=== PATIENT | female | born 1945 | race Caucasian/White ===

== ENCOUNTER 2022-09-08 12:47 | Outpatient (CLI) | payer MEDICARE, SELFPAY ==
--- NOTE | 2022-09-08 13:12 | MM_ITS ---
WS: [email or web address] BILATERAL 3D TOMOSYNTHESIS DIGITAL SCREENING MAMMOGRAPHY WITH CAD CLINICAL INFORMATION: Z12.39 - Encounter for other screening for malignant neop... HISTORY: Screening mammogram. LEFT breast scar tissue. Bilateral breast reduction. COMPARISON: August 26, 2021 TECHNIQUE: Bilateral CC and MLO views. FINDINGS: Prior postoperative changes bilateral breast reduction. Scattered fibroglandular densities bilaterally. No suspicious focal mass, asymmetry, calcifications, or architectural distortion. No evidence of malignancy. A few incidental punctate calcifications. No significant changes compared to previous. MM/[place] [id number] IMPRESSION: BI-RADS: 2-Benign FOLLOW UP: 1 Year Follow-up Recommend return to annual screening mammography.
== END 2022-09-08 12:48 | disposition home or self-care (01) ==
LOC: RAD 12:52
PROVIDERS: PCP Nurse Practitioner Family; Visit Provider Nurse Practitioner Family
DX: Z12.31 Encounter for screening mammogram for malignant neoplasm of breast (principal)
CPT/HCPCS: 77063; 77067

== ENCOUNTER → 2023-05-04 10:30 | Outpatient (BNVA) | payer MEDICARE, SELFPAY | PROVIDERS: PCP Nurse Practitioner Family; Visit Provider Nurse Practitioner Family | DX: Z00.00 Encounter for general adult medical examination without abnormal findings (principal); Z78.0 Asymptomatic menopausal state; I10 Essential (primary) hypertension; E55.9 Vitamin D deficiency, unspecified; E78.5 Hyperlipidemia, unspecified; Z12.31 Encounter for screening mammogram for malignant neoplasm of breast; M54.2 Cervicalgia; G89.29 Other chronic pain; G25.81 Restless legs syndrome; J01.00 Acute maxillary sinusitis, unspecified; Z53.20 Procedure and treatment not carried out because of patient's decision for unspecified reasons | CPT/HCPCS: 80053; 80061; 82306; 82607; 84443; 85025 ==

== ENCOUNTER 2023-05-10 14:58 | Outpatient (CLI) | payer MEDICARE, SELFPAY ==
--- NOTE | 2023-05-10 15:30 | XR_ITS ---
WS: [email or web address] SCREENING DEXA SCAN [facility] CLINICAL INFORMATION: Z78.0 - Asymptomatic menopausal state COMPARISON: None. FINDINGS: The L1-L4 bone mineral density measures 1.63. This corresponds to a T score score of 3.5 and Z score of 5.6. Left femoral neck bone mineral density measures 0.998 g/cm2. This corresponds to a T score of -0.1 an d Z score of 1.9. Right femoral neck bone mineral density measures 0.933 g/cm2. This corresponds to a T score -0.6of an d Z score of 1.4. Mean femoral neck bone mineral density measures 0.965 g/cm2. This corresponds to a T score of -0.3 an d Z score of 1.7. IMPRESSION: Normal bone mineralization lumbar spine. Normal bone mineralization femoral necks. Patient's FRAX calculated 10 year probability for major osteoporotic fracture is 11.1% and osteoporot ic hip fracture is 2.0%.
== END 2023-05-10 14:59 | disposition home or self-care (01) ==
LOC: RAD 14:59
PROVIDERS: PCP Nurse Practitioner Family; Visit Provider Nurse Practitioner Family
DX: Z13.820 Encounter for screening for osteoporosis (principal); Z78.0 Asymptomatic menopausal state
CPT/HCPCS: 77080

== ENCOUNTER 2023-10-25 11:30 | Outpatient (CLI) | payer MEDICARE, SELFPAY ==
--- NOTE | 2023-10-25 10:38 | MM_ITS ---
WS: [email or web address] BILATERAL SCREENING DIGITAL TOMOSYNTHESIS MAMMOGRAM WITH CAD HISTORY: SCREENING COMPARISON: None available. Bilateral CC and MLO views with tomosynthesis and synthetic mammography submitted. Computer aided det ection analyzed. Breast composition: There are scattered areas of fibroglandular density. No suspicious masses, microc alcifications or architectural distortion. MM/[place] [id number] IMPRESSION: BI-RADS: 1-Negative FOLLOW UP: 1 Year Follow-up
== END 2023-10-25 11:31 | disposition home or self-care (01) ==
PROVIDERS: PCP Nurse Practitioner Family; Visit Provider Nurse Practitioner Family
DX: Z12.31 Encounter for screening mammogram for malignant neoplasm of breast (principal); R92.323 Mammographic fibroglandular density, bilateral breasts
CPT/HCPCS: 77063; 77067

== ENCOUNTER → 2024-01-04 11:43 | Outpatient (BNVA) | payer MEDICARE, SELFPAY | PROVIDERS: PCP Nurse Practitioner Family; Visit Provider Nurse Practitioner Family | DX: R05.9 Cough, unspecified (principal) | CPT/HCPCS: 87400; 87426 ==

== ENCOUNTER → 2024-02-12 14:10 | Outpatient (BNVA) | payer MEDICARE, SELFPAY | PROVIDERS: PCP Nurse Practitioner Family; Visit Provider Nurse Practitioner Family | DX: M84.48XA Pathological fracture, other site, initial encounter for fracture (principal); M85.80 Other specified disorders of bone density and structure, unspecified site; M54.2 Cervicalgia; Z98.1 Arthrodesis status; Z96.698 Presence of other orthopedic joint implants; G89.29 Other chronic pain; Z98.890 Other specified postprocedural states | CPT/HCPCS: 72040 ==

== ENCOUNTER 2024-02-16 07:29 | Outpatient (CLI) | payer MEDICARE, SELFPAY ==
--- NOTE | 2024-02-16 08:00 | CTR_ITS ---
PROCEDURE INFORMATION: Exam: CT Cervical Spine Without Contrast Exam date and time: 02/16/2024 7:37 AM Age: 78 years old Clinical indication: Prior surgery; Surgery date: 6+ months; Surgery type: Cervical fusion 12 yrs ago; Patient HX: Cervicalgia x several years recently becoming worse and radiating into left arm with pain and numbness; Additional info: M54.2 - cervicalgia TECHNIQUE: Imaging protocol: Computed tomography of the cervical spine without contrast. Radiation optimization: All CT scans at this facility use at least one of these dose optimization techniques: automated exposure control; mA and/or kV adjustment per patient size (includes targeted exams where dose is matched to clinical indication); or iterative reconstruction. COMPARISON: CR XR cervical spine 3V* [id number] 02/12/2024 2:16 PM RADIATION DOSE METRICS: Total DLP (mGy-cm): 168.57 FINDINGS: Bones/joints: The patient is status post anterior cervical fusion from C3 through C7. There is slight grade 1 anterolisthesis of C7 on T1, T1 on T2, and T2 on T3. Otherwise alignment is maintained. There is no evidence of fracture. 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 There is moderate multilevel degenerative disc disease. C2-C3: No significant disc bulge or herniation. No severe spinal canal stenosis. No significant neural foraminal narrowing. C3-C4: There is mild to moderate spinal canal stenosis secondary to diffuse disc osteophyte ridging. There is severe right and moderate left neural foraminal stenosis secondary to foraminal disc osteophyte ridging and facet hypertrophy. C4-C5: There is mild spinal canal stenosis secondary to diffuse osteophyte ridging. The left neural foramen appears patent. There is severe right neural foraminal stenosis secondary to foraminal disc osteophyte ridging and facet hypertrophy. C5-C6: The spinal canal appears to be patent. The left neural foramen appears patent. There is moderate right neural foraminal stenosis secondary to foraminal disc osteophyte ridging and facet hypertrophy. C6-C7: There is mild spinal canal stenosis secondary to osteophyte ridging which effaces the anterior thecal sac. There is mild to moderate bilateral neural foraminal stenosis secondary to foraminal disc osteophyte ridging and facet hypertrophy. C7-T1: The spinal canal appears patent. There is [id number] bilateral neural foraminal stenosis secondary to foraminal disc osteophyte ridging and facet hypertrophy. Lungs: Lung apices are normal. Soft tissues: Unremarkable. CT/CT cervical spin wo con* [id number] IMPRESSION: Degenerative changes as described. Please see above for specific findings at each level.
== END 2024-02-16 07:30 | disposition home or self-care (01) ==
LOC: RAD 07:30
PROVIDERS: PCP Nurse Practitioner Family; Visit Provider Nurse Practitioner Family
DX: M48.02 Spinal stenosis, cervical region (principal); M25.78 Osteophyte, vertebrae; M19.09 Primary osteoarthritis, other specified site; M47.892 Other spondylosis, cervical region; M43.22 Fusion of spine, cervical region
CPT/HCPCS: 72125

== ENCOUNTER → 2024-02-27 12:44 | Outpatient (BNVA) | payer MEDICARE, SELFPAY | PROVIDERS: PCP Nurse Practitioner Family; Visit Provider Orthopaedic Surgery | DX: M54.2 Cervicalgia (principal); G89.29 Other chronic pain | CPT/HCPCS: 72050; 99204 ==

== ENCOUNTER → 2024-04-25 13:12 | Outpatient (BNVA) | payer MEDICARE, SELFPAY | PROVIDERS: PCP Nurse Practitioner Family; Visit Provider Student in an Organized Health Care Education/Training Program | DX: G56.02 Carpal tunnel syndrome, left upper limb (principal) | CPT/HCPCS: 20600; 73110; 99204; J3301; J3490 ==

== ENCOUNTER → 2024-05-13 10:18 | Outpatient (BNVA) | payer MEDICARE, SELFPAY | PROVIDERS: PCP Nurse Practitioner Family; Referring Provider Orthopaedic Surgery; Visit Provider Anesthesiology Pain Medicine | DX: G89.29 Other chronic pain (principal); M47.812 Spondylosis without myelopathy or radiculopathy, cervical region | CPT/HCPCS: 99204 ==

== ENCOUNTER → 2024-07-19 10:08 | Outpatient (BNVA) | payer MEDICARE, SELFPAY | PROVIDERS: PCP Nurse Practitioner Family; Visit Provider Nurse Practitioner Family | DX: D18.01 Hemangioma of skin and subcutaneous tissue (principal); L57.8 Other skin changes due to chronic exposure to nonionizing radiation; L81.4 Other melanin hyperpigmentation; L82.1 Other seborrheic keratosis; Z08 Encounter for follow-up examination after completed treatment for malignant neoplasm; Z85.828 Personal history of other malignant neoplasm of skin; L57.0 Actinic keratosis | CPT/HCPCS: 17000; 99213 ==

== ENCOUNTER → 2024-09-13 12:38 | Outpatient (BNVA) | payer MEDICARE, SELFPAY | PROVIDERS: PCP Nurse Practitioner Family; Visit Provider Nurse Practitioner Family | DX: M54.50 Low back pain, unspecified (principal); G89.29 Other chronic pain; M41.9 Scoliosis, unspecified; I10 Essential (primary) hypertension; E78.5 Hyperlipidemia, unspecified; G25.81 Restless legs syndrome | CPT/HCPCS: 80053; 80061; 82306; 82607; 83036; 84443; 85025 ==

== ENCOUNTER 2024-10-18 10:56 | Outpatient (CLI) | payer MEDICARE, SELFPAY ==
--- NOTE | 2024-10-18 11:09 | XRR_ITS ---
PROCEDURE INFORMATION: Exam: XR Thoracic Spine Exam date and time: 10/18/2024 11:21 AM Age: 79 years old Clinical indication: Pain in thoracic spine; Additional info: M54.6 - pain in thoracic spine TECHNIQUE: Imaging protocol: Radiologic exam of the thoracic spine. Views: 3 views. COMPARISON: CR XR cervical spine 4-5V [id number] 02/27/2024 12:45 PM FINDINGS: Bones/joints: 60 degrees of dextroscoliosis centered at L 2. The lumbar dextroscoliosis results in mild levoscoliosis of the lower thoracic spine. No malalignment. No acute fracture identified. Assessment of the lower thoracic vertebra is somewhat limited secondary to scoliosis. Cervical spine fixation hardware is partially imaged. Soft tissues: Unremarkable. XR/XR thoracic spine 3V* [id number] IMPRESSION: 1. Severe lumbar dextroscoliosis. 2. No acute fracture or malalignment in the thoracic spine.
--- NOTE | 2024-10-18 11:09 | XRR_ITS ---
PROCEDURE INFORMATION: Exam: XR Lumbosacral Spine Exam date and time: 10/18/2024 11:21 AM Age: 79 years old Clinical indication: Low back pain; Additional info: M54.50 - low back pain, unspecified TECHNIQUE: Imaging protocol: Radiologic exam of the lumbosacral spine. Views: 2 or 3 views. COMPARISON: CR XR thoracic spine 3V* [id number] 10/18/2024 11:21 AM FINDINGS: Bones/joints: Severe dextroconvex curvature of the lumbar spine with the L2 vertebral body. Severe multilevel degenerative changes of the lumbar spine with degenerative disc changes and facet changes. There is some variable mild height loss of the mid and lower lumbar levels but difficult to evaluate acuity given technique. Consider cross-sectional imaging. Soft tissues: Unremarkable. XR/XR lumbar spine 2-3V* [id number] IMPRESSION: As above..
== END 2024-10-18 10:57 | disposition home or self-care (01) ==
PROVIDERS: PCP Nurse Practitioner Family; Visit Provider Nurse Practitioner Family
DX: M54.50 Low back pain, unspecified (principal); M54.6 Pain in thoracic spine; M41.86 Other forms of scoliosis, lumbar region; M41.54 Other secondary scoliosis, thoracic region
CPT/HCPCS: 72072; 72100

== ENCOUNTER 2024-11-01 07:43 | Outpatient (CLI) | payer MEDICARE, SELFPAY ==
--- NOTE | 2024-11-01 | MM_ITS ---
WS: [email or web address] BILATERAL SCREENING DIGITAL TOMOSYNTHESIS MAMMOGRAM WITH CAD HISTORY: ANNUAL SCREENING COMPARISON: 10/25/2023, 09/08/2022, 08/26/2021 Bilateral CC and MLO views with tomosynthesis and synthetic mammography submitted. Computer aided detection analyzed. Breast composition: There are scattered areas of fibroglandular density. No suspicious masses, microcalcifications or architectural distortion. Benign calcifications anterior depth of each breast. No suspicious grouping of calcification or distortion. MM/MM scr tomosynthesis [id number] IMPRESSION: BI-RADS: 2 - Benign. FOLLOW UP: 1 Year Follow-up
== END 2024-11-01 07:44 | disposition home or self-care (01) ==
LOC: RAD 07:44
PROVIDERS: PCP Nurse Practitioner Family; Visit Provider Nurse Practitioner Family
DX: Z12.31 Encounter for screening mammogram for malignant neoplasm of breast (principal); R92.323 Mammographic fibroglandular density, bilateral breasts; R92.1 Mammographic calcification found on diagnostic imaging of breast
CPT/HCPCS: 77063; 77067

== ENCOUNTER 2024-11-22 08:05 | Outpatient (CLI) | payer MEDICARE, SELFPAY ==
--- NOTE | 2024-11-22 08:45 | MR_ITS ---
WS: [email or web address] MRI LUMBAR SPINE NONCONTRAST HISTORY: M54.50 - Low back pain, unspecified COMPARISON: None available. TECHNIQUE: Sagittal and axial multisequence imaging is submitted. Severe RIGHT rotary scoliosis of the lumbar spine. Scoliosis begins in the lower thoracic spine. There is a small amount of marrow edema in the L4 and L5 vertebral bodies. Endplate marrow edema at L1 and L2. Advanced degenerative disc disease and facet arthropathy. Conus terminates normally at L1-2 disc level. L1-L2: Diffuse annular disc bulging, osteophytic ridging and facet arthritis. Severe bilateral foraminal stenosis. L2-L3: Deformed thecal sac by the scoliosis. Moderate facet arthritis. Very minimal central and foraminal stenosis. L3-L4: Diffuse osteophytic ridging. Marked deformity of the thecal sac. Nerve roots are being displaced and compressed. At least moderate central, bilateral foraminal stenosis and facet arthritis. L4-L5: Marked deformity of the thecal sac with marked facet arthritis. Asymmetric disc bulging to the RIGHT. Severe central, bilateral subarticular recess and foraminal stenosis. L5-S1: Diffuse annular disc bulging with osteophytic ridging. Central disc protrusion. Ligamentum flavum and facet arthritis. Mild central and subarticular recess and severe bilateral foraminal stenosis. No mass identified on the posterior lumbar spine. The palpable abnormality may actually be the transverse processes of the lumbar vertebral bodies. The RIGHT L2 and L3 transverse processes are very close to the skin surface due to the scoliosis. LEFT renal cysts. MR/MR lumbar spine wo con* [id number] IMPRESSION: 1. Severe rotary scoliosis lumbar spine with curvature to the RIGHT. 2. Advanced degenerative facet joint arthropathy and stenosis at several level s. 3. Severe bilateral foraminal stenosis at L1-2. 4. Moderate central, bilateral foraminal stenosis and facet arthropathy at L3- 4. 5. Severe central, bilateral subarticular recess and foraminal stenosis at L4- 5. 6. Severe bilateral foraminal stenosis at L5-S1. 7. No paraspinal soft tissue mass. The palpable areas along the RIGHT lateral lumbar spine may actually be the RIGHT transverse processes of L1 and L2 which are very close to the skin surface.
--- NOTE | 2024-11-22 09:30 | MR_ITS ---
WS: [email or web address] MRI THORACIC SPINE noncontrast HISTORY: M54.6 - Pain in thoracic spine COMPARISON: Radiograph 10/18/2024 TECHNIQUE: Multiplanar sequences are performed in sagittal and axial planes. Prior anterior cervical fusion from C3-C7. Marked RIGHT curvature thoracolumbar spine. Scoliosis is most significant near the thoracolumbar junction. No thoracic spine compression fractures. Signal within the cord is normal. No cord compression. Mild straightening of the thoracic kyphosis. T1-2: Normal. T2-3: Normal. T3-4: Normal. T4-5: Normal. T5-6: Small central disc protrusion. Mild facet arthritis. T6-7: Mild facet arthritis and mild foraminal narrowing. T7-8: Mild facet arthritis and a very shallow LEFT paracentral disc protrusion. Mild foraminal stenosis. T8-9: Mild facet arthritis and foraminal stenosis. T9-10: Moderate to severe RIGHT foraminal stenosis due to the scoliosis and facet and osteophytosis. Mild LEFT foraminal stenosis. T10-11: Osteophyte encroachment upon the posterior lateral thecal sac. Severe RIGHT and moderate LEFT foraminal stenosis. T11-12: Moderate to severe bilateral foraminal stenosis and facet arthritis. T12-L1: Mild facet arthritis and foraminal stenosis. Paraspinal thoracic soft tissues are normal. LEFT renal cyst 2.4 cm. MR/MR thoracic spin wo con* [id number] IMPRESSION: 1. Marked thoracolumbar scoliosis. Scoliosis centered at the thoracolumbar baltazar ction. 2. Prior anterior cervical fusion. 3. Multilevel areas of facet joint arthropathy and stenosis. 4. Moderate to severe RIGHT foraminal stenosis and mild LEFT foraminal stenosi s at T9-10. 5. Severe RIGHT and moderate LEFT foraminal stenosis at T10-11. 6. Moderate to severe bilateral foraminal stenosis at T11-12. 7. No high-grade central stenosis. No cord compression.
== END 2024-11-22 08:06 | disposition home or self-care (01) ==
LOC: RAD 08:06
PROVIDERS: PCP Nurse Practitioner Family; Visit Provider Nurse Practitioner Family
DX: M48.04 Spinal stenosis, thoracic region (principal); M47.894 Other spondylosis, thoracic region; M99.62 Osseous and subluxation stenosis of intervertebral foramina of thoracic region; M51.24 Other intervertebral disc displacement, thoracic region
CPT/HCPCS: 72146; 72148

== ENCOUNTER → 2024-12-17 14:22 | Outpatient (BNVA) | payer MEDICARE, SELFPAY | PROVIDERS: PCP Nurse Practitioner Family; Visit Provider Student in an Organized Health Care Education/Training Program | DX: G56.02 Carpal tunnel syndrome, left upper limb (principal) | CPT/HCPCS: 20600; 99213; J3301; J3490 ==

== ENCOUNTER → 2024-12-23 14:39 | Outpatient (BNVA) | payer MEDICARE, SELFPAY | PROVIDERS: PCP Nurse Practitioner Family; Visit Provider Nurse Practitioner Family | DX: R63.4 Abnormal weight loss (principal); G56.02 Carpal tunnel syndrome, left upper limb; R53.83 Other fatigue | CPT/HCPCS: 80053; 82607; 84439; 84443; 85025 ==

== ENCOUNTER → 2024-12-26 14:43 | Outpatient (BNVA) | payer MEDICARE, SELFPAY | PROVIDERS: PCP Nurse Practitioner Family; Visit Provider Nurse Practitioner Family | DX: L82.1 Other seborrheic keratosis (principal); D18.01 Hemangioma of skin and subcutaneous tissue; L57.8 Other skin changes due to chronic exposure to nonionizing radiation; L81.4 Other melanin hyperpigmentation; Z08 Encounter for follow-up examination after completed treatment for malignant neoplasm; Z85.828 Personal history of other malignant neoplasm of skin; L82.0 Inflamed seborrheic keratosis; L29.89 Other pruritus; Z78.9 Other specified health status; L53.8 Other specified erythematous conditions; D48.5 Neoplasm of uncertain behavior of skin; L57.0 Actinic keratosis | CPT/HCPCS: 11102; 17000; 17110; 99213 ==

== ENCOUNTER → 2025-01-06 15:57 | Outpatient (BNVA) | payer MEDICARE, SELFPAY | PROVIDERS: PCP Nurse Practitioner Family; Visit Provider Registered Nurse Neonatal Intensive Care | DX: R50.9 Fever, unspecified (principal) | CPT/HCPCS: 87400; 87426 ==

== ENCOUNTER → 2025-03-24 15:14 | Outpatient (BNVA) | payer MEDICARE, SELFPAY | PROVIDERS: PCP Nurse Practitioner Family; Visit Provider Nurse Practitioner Family | DX: L24.4 Irritant contact dermatitis due to drugs in contact with skin (principal); L72.0 Epidermal cyst | CPT/HCPCS: 10060; 99213 ==